=== PATIENT | female | born 2005 | race Hispanic/Latino ===

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

== ENCOUNTER 2023-05-23 23:09 | Emergency (ER) | payer MEDICAID ==
[~2023-05-23] VITALS: Ht 157.5 cm; Wt 59.0 kg
[~2023-05-23 23:09] MED LIST: CEPH500B PO
[2023-05-23 23:45] LABS: BASOPHILS # (AUTO) 0.05 K/uL (0.00-0.20); BASOPHILS % (AUTO) 0.7 % (0.0-5.0); EOSINOPHILS # (AUTO) 0.14 K/uL (0.00-0.70); EOSINOPHILS % (AUTO) 1.9 % (0.0-8.0); HEMATOCRIT 39.9 % (36-48); IMMATURE GRANULOCYTE ABSOLUTE 0.02 K/uL (0-1); LYMPHOCYTES # (AUTO) 2.1 K/uL (1.0-4.8); LYMPHOCYTES % (AUTO) 29.4 % (21.0-51.0); MEAN CORPUSCULAR HGB CONC 31.6 g/dL (32.0-36.0); MEAN CORPUSCULAR VOLUME 79.2 fL (80-100); MONOCYTES # (AUTO) 0.5 K/uL (0.1-1.0); MONOCYTES % (AUTO) 6.7 % (3.0-13.0); NEUTROPHILS # (AUTO) 4.4 K/uL (1.8-7.7); PLATELET COUNT (AUTO) 342 K/uL (130-400); RED BLOOD CELL COUNT(AUTO) 5.04 MIL/uL (4.00-5.50); RED CELL DISTRIBUTION WIDTH 14.3 % (11.0-15.5); WHITE BLOOD COUNT (AUTO) 7.3 K/uL (4.8-10.8)
[2023-05-23 23:58] LABS: CREATININE 0.6 mg/dL (0.5-1.5); POTASSIUM 3.3 mmol/L (3.5-5.1)
[2023-05-24] LABS: APPEARANCE,URINE CLEAR (CLEAR); BILIRUBIN,URINE NEGATIVE (NEGATIVE); COLOR,URINE LIGHT-YELLOW (YELLOW); GLUCOSE, URINE (UA) NEGATIVE (NEGATIVE); KETONES,URINE NEGATIVE (NEGATIVE); LEUKOCYTE ESTERASE ,URINE NEGATIVE Leu/uL (NEGATIVE); NITRATE,URINE NEGATIVE (NEGATIVE); OCCULT BLOOD,URINE NEGATIVE (NEGATIVE); PROTEIN,URINE NEGATIVE (NEGATIVE); UROBILINOGEN,URINE 0.2 mg/dL (0.2-1.0)
[2023-05-24 00:01] LABS: HCG,QUALITATIVE URINE NEGATIVE (NEGATIVE)
[2023-05-24 00:02] LABS: ADD UA MICROSCOPIC NO
[2023-05-24 00:03] LABS: BILIRUBIN,TOTAL 0.4 mg/dL (0.2-1.0); TOTAL PROTEIN, SERUM 7.6 g/dL (6.0-8.3)
[2023-05-24] MEDS ORDERED: POLY119P2 PO (01:52)
[2023-05-24 01:53] VITALS: BP 155/87; PULSE 69; RESP 16; O2SAT 100
[2023-05-24] MEDS ORDERED: DICY20TA2 PO (01:53)
== END 2023-05-24 02:28 | disposition home or self-care (01) ==
LOC: EDH 23:09
DX: K59.00 Constipation, unspecified (principal); F41.9 Anxiety disorder, unspecified
CPT/HCPCS: 36415; 80053; 81003; 81025; 82150; 83690; 85025

== ENCOUNTER 2024-02-21 10:20 | Emergency (ER) | payer BC, MEDICAID ==
[~2024-02-21] VITALS: Ht 157.5 cm; Wt 63.5 kg
[~2024-02-21 10:20] MED LIST changes: +DICY20TA2 PO; +POLY119P2 PO
--- NOTE | 2024-02-21 10:43 | ERN ---
General Chief Complaint: Anxiety/Panic Attack Stated Complaint: ANXIETY Time Seen by MD: 10:28 History of Present Illness Initial Comments 18-year-old female presents to the ED via EMS stating she had an anxiety attack at [employer]. Patient is reporting increased episodes of anxiety that have occurred in the last 6 months after a traumatic event. Patient states "I do not have any actual thoughts of killing myself." Patient denies any visual hallucination, SI or homicidal ideation. Allergies: Coded Allergies: No Known Allergies (Unverified Allergy, Unknown, 03/30/22) Home Meds Active Scripts Dicyclomine HCl (Bentyl) 20 Mg Tab, 20 MG PO TIDP PRN for PAIN, #30 TAB Prov:ROBERT FERNANDEZ MD 05/24/23 Polyethylene Glycol 3350 (Miralax) 17 Gram/Dose Powder, 119 GM PO DAILY PRN for CONSTIPATION, #30 APPL Prov:ROBERT FERNANDEZ MD 05/24/23 Cephalexin Monohydrate (Keflex) 500 Mg Cap, 1000 MG PO BID for 7 Days, #28 CAP Prov:HIRA BECERRA NP 03/30/22 Past Medical History Past Medical History: Anxiety Medical History Other: DEPRESSION Past Surgical History: None Family History Family History: Negative Social History Social History: Negative, Lives with family Female( History) LMP: Feb 20, 2024 : 0 Para: 0 Aborts: 0 ROS Dictation Constitutional: Negative for fever,chills Eyes: Negative for injury, pain,redness, and discharge ENT: Negative for injury,pain or swelling Cardiovascular: Negative for chest pain, palpitations, and edema Respiratory: Negative for shortness of breath, cough, and wheezing, Abdomen/GI: Negative for abdominal pain, nausea, vomiting, diarrhea, and constipation Back: Negative for injury and pain : Negative for injury, bleeding and discharge MS/Extremity: Negative for injury and deformity Skin: Negative for rash, and discoloration Neuro: Negative for headache, weakness, numbness, tingling, and seizure Psych: Positive for anxiety Negative for suicide ideation, homicidal ideation, and hallucinations Physical Exam Physical Exam Dictation General: awake, alert, NAD Head/Face: Normocephalic, atraumatic Eyes: PERRL, EOMI, vision at baseline ENT: oral cavity clear, TMs clear, no signs of infection Neck: Trachea midline, supple, no nuchal rigidity Cardiovascular: RRR, normal S1/S2, No MRGs, no JVD Respiratory: CTAB, no respiratory distress, No rales or wheezes Abdomen: Soft, non-tender, non-distended, normal bowel sounds, no guarding or rebound. Skin: Warm, dry, normal turgor, no rash MS/Extremity: Pulses equal, no cyanosis, neurovascular intact, FROM Neuro: COAx4, GCS 15, strength 5/5, CN 2-12 intact, normal cerebellar exam, normal gait, Psych: Patient appears anxious MDM MDM: Differential diagnosis: Anxiety, panic attack Previous outside records reviewed: Old ER visits. Need for hospitalization: Patient does not meet criteria for hospitalization. Need for emergency major/minor surgery: No Patient's prior external medical records from other ER visits were reviewed by me as indicated. Prior testing and results from previous visits were reviewed. Prior tests were taken into account with medical decision making and resource utilization, independent historian/historians were used to obtain complete m edical history. I independently interpreted the test that were performed, results were reviewed by me and considered findings on radiology if ordered. Medical management and examination interpretation discussions were had by me with other qualified healthcare professionals as indicated for the patient's care. Symptoms consistent with a panic attack. Physical exam is normal. Otherwise unremarkable. She denies suicidal homicidal ideation. Can follow up as an outpatient. EKG interpreted by me: Normal sinus rhythm rate of 81 normal axis good R progression intervals are stable. No STEMI. ED Course Orders Procedure Category Date Status Time 12 Lead Ekg Tracing- EKG 02/21/24 Logged Technical 10:39 ,Urine Test LAB 02/21/24 Logged 10:39 Vital Signs Date Time Temp Pulse Resp B/P (MAP) Pulse Ox O2 Delivery O2 Flow Rate FiO2 02/21/24 11:21 98.2 83 16 160/116 98 Room Air* 0 21 02/21/24 10:21 98.2 98 16 150/100 98 Room Air 0 DX & DISP Disposition: Discharge Departure Impression: Primary Impression: Anxiety Additional Impression: Panic attack Condition: Stable Scripts Hydroxyzine HCl (Hydroxyzine HCl) 25 Mg Tablet 1 TAB PO TID for anxiety for 10 Days, #30 TAB 0 Refills Prov: LAURA PADILLA DO 02/21/24 Additional Instructions: You likely had a panic attack today. It appears that you have some underlying anxiety. Your EKG is normal. Your vital signs are normal. As we discussed, please continue your escitalopram. You likely need outpatient mental health evaluation. As we discussed, contact psychiatrist or mental health professionals. I have prescribed hydroxyzine, which you can use as needed for panic attacks. Only take this medication if you are having a panic attack. You do not need to take it regularly. As we discussed, regular aerobic activity has been shown to reduce anxiety and depression. I recommend that you exercise regularly. Please return to the emergency department if you have any concerns. Referrals: JEROD JUSTICE MD (PCP) I have reviewed, & agreed with my scribe's, documentation. (Entered by [employer], acting as a scribe for Dr. Padilla) I personally scribed for LAURA PADILLA DO (ALICJA) on 02/21/24 at 10:43. Electronically submitted by [employer] ([employer]). I personally scribed for LAURA PADILLA DO (ALICJA) on 02/21/24 at 11:28. Electronically submitted by [employer] ([employer]). LAURA PADILLA DO Feb 21, 2024 10:43
[2024-02-21 11:21] VITALS: BP 160/116; PULSE 83; RESP 16; TEMP 98.3; O2SAT 98
[2024-02-21] MEDS ORDERED: HYDR-3421 PO (11:45)
--- NOTE | 2024-02-22 06:21 | EKG ---
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
== END 2024-02-21 11:56 | disposition home or self-care (01) ==
LOC: EDH 10:20
DX: F41.0 Panic disorder [episodic paroxysmal anxiety] (principal); Z79.899 Other long term (current) drug therapy
CPT/HCPCS: 93005